=== PATIENT | female | born 1985 | race African-American/Black ===

== ENCOUNTER 2020-12-23 22:39 | Emergency (ER) | payer OTHER ==
[~2020-12-23] VITALS: Ht 157.5 cm; Wt 90.7 kg
[~2020-12-23 22:39] MED LIST: IOPHEN DM-100 MG/5 M PO; LEVAQUIN750 MG PO; PREDNISONE20 MG PO
[2020-12-23] MEDS ORDERED: ATENOLOL25 MG (22:51)
== END 2020-12-24 05:08 | disposition home or self-care (01) ==
LOC: ER 22:39
DX: K80.80 Other cholelithiasis without obstruction (principal); R10.11 Right upper quadrant pain; R10.13 Epigastric pain

== ENCOUNTER 2021-05-23 08:00 | Outpatient (CLI) | payer OTHER ==
[~2021-05-23 08:00] MED LIST changes: +ATENOLOL25 MG
== END 2021-05-23 08:30 | disposition home or self-care (01) ==
LOC: PPH VACUNA 08:00
DX: Z23 Encounter for immunization (principal)

== ENCOUNTER 2021-06-13 08:00 | Outpatient (CLI) | payer OTHER | END 2021-06-13 08:30 | disposition home or self-care (01) | LOC: PPH VACUNA 08:00 | DX: Z23 Encounter for immunization (principal) ==

== ENCOUNTER 2021-07-09 11:52 | Outpatient (CLI) | payer OTHER | END 2021-07-09 12:08 | disposition home or self-care (01) | LOC: RAD 11:52 | PROVIDERS: ATTEND Internal Medicine | DX: J15.7 Pneumonia due to Mycoplasma pneumoniae (principal); Q33.1 Accessory lobe of lung ==

== ENCOUNTER → 2021-07-09 13:11 | Outpatient (CLI) | payer OTHER | END | disposition home or self-care (01) | LOC: LAB 13:11 | PROVIDERS: ATTEND Internal Medicine | DX: Z00.00 Encounter for general adult medical examination without abnormal findings (principal) ==

== ENCOUNTER 2021-08-11 15:52 | Inpatient (IN) | payer OTHER ==
[~2021-08-11] VITALS: Ht 157.5 cm; Wt 79.4 kg
[2021-08-11] MEDS ORDERED: PEPCID AC20 MG PO (21:34)
[2021-08-11] MEDS ORDERED: CARAFATE1 GM PO (21:34)
[2021-08-12] MEDS ORDERED: ALLERGY RELIEF10 MG (13:25)
== END 2021-08-21 07:42 | disposition home or self-care (01) | DRG 418 ==
LOC: ER 15:52 → MEDI 23:10 → SEC-K 23:10 → MEDI 08-12 14:42 → SURH 08-18 19:09
PROVIDERS: ADMIT Internal Medicine; ATTEND Internal Medicine
PROC: 0FT44ZZ Resection of Gallbladder, Percutaneous Endoscopic Approach (ICD-10-PCS; principal; 2021-08-14)
PROC: 0FC98ZZ Extirpation of Matter from Common Bile Duct, Via Natural or Artificial Opening Endoscopic (ICD-10-PCS; 2021-08-14)
PROC: BF522Z0 Other Imaging of Gallbladder using Fluorescing Agent, Intraoperative (ICD-10-PCS; 2021-08-14)
DX: K85.10 Biliary acute pancreatitis without necrosis or infection (principal); K80.45 Calculus of bile duct with chronic cholecystitis with obstruction; Z20.822 Contact with and (suspected) exposure to COVID-19

== ENCOUNTER 2021-10-03 08:26 | Outpatient (CLI) | payer OTHER ==
[~2021-10-03 08:26] MED LIST changes: +ALLERGY RELIEF10 MG; +CARAFATE1 GM PO; +PEPCID AC20 MG PO
== END 2021-10-03 08:38 | disposition home or self-care (01) ==
LOC: TOM 08:26
PROVIDERS: ATTEND Internal Medicine
DX: R10.12 Left upper quadrant pain (principal); K46.9 Unspecified abdominal hernia without obstruction or gangrene

== ENCOUNTER 2023-03-12 10:33 | Outpatient (CLI) | payer OTHER | END 2023-03-12 10:42 | disposition home or self-care (01) | LOC: MRI 10:33 | PROVIDERS: ATTEND Student in an Organized Health Care Education/Training Program | DX: R10.2 Pelvic and perineal pain (principal); N93.0 Postcoital and contact bleeding | CPT/HCPCS: 72196; Q9965 ==

== ENCOUNTER 2023-05-21 18:50 | Emergency (ER) | payer OTHER ==
[~2023-05-21] VITALS: Ht 157.5 cm; Wt 90.7 kg
[2023-05-21] MEDS ORDERED: LEVSIN/SL0.125 MG SL (21:47)
[2023-05-21] MEDS ORDERED: PEPCID AC20 MG PO (21:47)
[2023-05-21] MEDS ORDERED: CARAFATE1 GM PO (21:47)
[2023-05-21] MEDS ORDERED: MACRODANTIN100 M1 PO (21:47)
== END 2023-05-21 21:52 | disposition home or self-care (01) ==
LOC: ER 18:50
DX: K29.70 Gastritis, unspecified, without bleeding (principal); N39.0 Urinary tract infection, site not specified; Z88.6 Allergy status to analgesic agent; Z88.8 Allergy status to other drugs, medicaments and biological substances

== ENCOUNTER 2023-08-12 07:41 | Day surgery (SDC) | payer OTHER ==
[2023-08-10 16:19] LABS: HEMATOCRIT 39.8 % (36.0-45.00); HEMOGLOBIN 13.8 g/dL (12.0-15.00); MEAN CELL VOLUME 85.5 fL (80.00-100.00); MEAN CORPUSCULAR HEMOGLOBIN 29.6 pg (27.00-32.0); MEAN CORPUSCULAR HGB CONC 34.7 g/dl (32.0-36.0); PLATELET COUNT 351 K/uL (150-450); RED BLOOD COUNT 4.66 M/uL (4.00-6.00); RED CELL DISTRIBUTION WIDTH 13.4 % (11.5-14.5)
[2023-08-10 16:51] LABS: ALBUMIN 3.7 gm/dL (3.4-5.0); CALCIUM 9.5 mg/dL (8.5-10.1); CREATININE SERUM 0.9 mg/dL (0.55-1.02); GFR 69.35; PHOSPHOROUS 3.7 mg/dL (2.5-4.9); POTASSIUM 4.21 mEq/L (3.5-5.1)
[~2023-08-12 07:41] MED LIST changes: +LEVSIN/SL0.125 MG SL; +MACRODANTIN100 M1 PO
== END 2023-08-12 14:40 | disposition home or self-care (01) ==
LOC: AMB-ENDOS 07:41
PROVIDERS: ATTEND Surgery
DX: K29.50 Unspecified chronic gastritis without bleeding (principal); B96.81 Helicobacter pylori [H. pylori] as the cause of diseases classified elsewhere; K59.00 Constipation, unspecified; K57.30 Diverticulosis of large intestine without perforation or abscess without bleeding; K64.8 Other hemorrhoids; K30 Functional dyspepsia; Z20.822 Contact with and (suspected) exposure to COVID-19; Z88.6 Allergy status to analgesic agent